=== PATIENT | male | born 1995 | race Two or more races ===

== ENCOUNTER 2018-01-16 05:28 | Emergency (ER) | payer OTHER ==
[~2018-01-16] VITALS: Ht 177.8 cm; Wt 113.4 kg
[2018-01-16 05:34] VITALS: BP 147/101
[2018-01-16] MEDS ORDERED: IPRATROPIUM BROM 0.5 MG/2.5ML INH SOL NEB ONE (06:30)
[2018-01-16] MEDS ORDERED: ALBUTEROL SULF 2.5 MG/0.5ML(0.5%) NEB SOLN NEB ONE (06:30)
== END 2018-01-16 07:19 | disposition home or self-care (01) ==
LOC: ER 05:32
DX: J03.90 Acute tonsillitis, unspecified (principal)
CPT/HCPCS: 71046; 94640; 99284; J7611; J7644